=== PATIENT | female | born 2000 | race Caucasian/White ===

== ENCOUNTER 2018-06-04 07:50 | Inpatient (IN) | payer OTHER ==
[~2018-06-04] VITALS: Ht 165.1 cm; Wt 102.7 kg
[2018-06-04] MEDS ORDERED: MORPHINE SULFATE 4 MG/ML CPJ (NOT FOR IM USE) IV STA (08:02)
[2018-06-04] MEDS ORDERED: SODIUM CHLORIDE 0.9% 1,000 ML IV ONE (08:02)
[2018-06-04] MEDS ORDERED: ONDANSETRON HCL 4MG/2ML INJ IV STA (08:02)
[2018-06-04] MEDS ORDERED: NORT10CA PO (08:03)
[2018-06-04] MEDS ORDERED: PROP10TA10 PO (08:03)
[2018-06-04 08:30] LABS: BASOPHILS % 0.4 % (0.0-2.0); EOSINOPHILS % 3.2 % (0.0-5.0); HEMATOCRIT. 41.4 % (36.0-48.0); LYMPHOCYTES % 21.1 % (20.0-50.0); MEAN CORPUSCULAR HEMOGLOBIN 29.5 pg (28.0-32.0); MEAN CORPUSCULAR VOLUME 87.5 fL (81.0-99.0); MEAN PLATELET VOLUME 8.1 fl (7.4-10.4); MONOCYTES % 6.7 % (2.0-8.0); NEUTROPHILS % 68.6 % (40.0-76.0); PLATELET 284 x1000/uL (130-400); RED BLOOD CELL COUNT 4.73 mill/uL (4.2-5.4); RED CELL DISTRIBUTION WIDTH 13.9 % (11.6-14.6)
[2018-06-04 08:37] LABS: CHLORIDE 109 mEq/L (98-107)
[2018-06-04 08:50] LABS: HCG SCREEN NEGATIVE
[2018-06-04] MEDS ORDERED: ONDANSETRON HCL 4MG/2ML INJ IV ONE (09:45)
[2018-06-04] MEDS ORDERED: LORAZEPAM 2MG/ML CPJ IV ONE (09:45)
[2018-06-04 12:00] VITALS: BP 113/74
[2018-06-04] MEDS ORDERED: HYDROCODONE/ACETAMINOPHEN 5/325MG TABLET PO PRN (12:00)
[2018-06-04] MEDS ORDERED: GUAIFENESIN 200MG/10ML SUGAR FREE UDC PO PRN (12:00)
[2018-06-04] MEDS ORDERED: LORAZEPAM 2MG/ML CPJ IV PRN (12:00)
[2018-06-04] MEDS ORDERED: DOCUSATE SODIUM 100MG CAPSULE PO PRN (12:00)
[2018-06-04] MEDS ORDERED: ONDANSETRON HCL 4MG/2ML INJ IV PRN (12:00)
[2018-06-04] MEDS ORDERED: NA PHOS,M-B/NA PHOS,DI-BA ENEMA 118ML PR PRN (12:00)
[2018-06-04] MEDS ORDERED: CLONIDINE 0.1MG TABLET PO PRN (12:00)
[2018-06-04] MEDS ORDERED: MAGNESIUM/ALUMINUM HYDROXIDE/SIMETHICONE 30ML UDC PO PRN (12:00)
[2018-06-04] MEDS ORDERED: IPRATROPIUM/ALBUTEROL 0.5-3(2.5)MG/3ML NEB INH PRN (12:00)
[2018-06-04] MEDS ORDERED: MORPHINE SULFATE 4 MG/ML CPJ (NOT FOR IM USE) IV PRN (12:00)
[2018-06-04] MEDS ORDERED: DIPHENHYDRAMINE 50MG/ML VIAL IV PRN (12:00)
[2018-06-04 12:43] VITALS: BP 113/74
[2018-06-04] MEDS ORDERED: TOPI25TA48 MT (12:54)
[2018-06-04] MEDS ORDERED: NORT75CA MT (13:02)
[2018-06-04 16:00] VITALS: BP 104/63
[2018-06-04 16:13] LABS: CHLORIDE 111 mEq/L (98-107)
[2018-06-04] MEDS: SODIUM CHLORIDE 0.45% 1,000 ML IV SCH (16:17)
[2018-06-04 20:00] VITALS: BP 146/67
[2018-06-04] MEDS ORDERED: ENOXAPARIN 40MG/0.4ML SYR SUBCUT SCH (20:30)
[2018-06-04] MEDS: ACETAMINOPHEN 325MG TABLET PO PRN (21:01)
[2018-06-04] MEDS: ENOXAPARIN 30MG/0.3ML SYR SUBCUT SCH (21:02)
[2018-06-05] VITALS: BP 140/65
[2018-06-05 04:00] VITALS: BP 107/51
[2018-06-05 07:18] LABS: BASOPHILS % 0.6 % (0.0-2.0); EOSINOPHILS % 3.6 % (0.0-5.0); HEMATOCRIT. 36.9 % (36.0-48.0); HEMOGLOBIN. 12.5 g/dL (12.0-16.0); LYMPHOCYTES % 37.4 % (20.0-50.0); MEAN CORPUSCULAR HEMOGLOBIN 29.8 pg (28.0-32.0); MEAN CORPUSCULAR VOLUME 87.8 fL (81.0-99.0); MEAN PLATELET VOLUME 8.1 fl (7.4-10.4); MONOCYTES % 8.9 % (2.0-8.0); NEUTROPHILS % 49.5 % (40.0-76.0); PLATELET 229 x1000/uL (130-400); RED CELL DISTRIBUTION WIDTH 13.3 % (11.6-14.6)
[2018-06-05 07:36] LABS: CHLORIDE 111 mEq/L (98-107)
[2018-06-05 07:47] LABS: LDL CHOLESTEROL 108 mg/dL (5-100)
[2018-06-05 07:48] LABS: HDL CHOLESTEROL 29 mg/dL (40-59)
[2018-06-05 08:00] VITALS: BP 101/62
[2018-06-05] MEDS ORDERED: ASPIRIN 81MG EC TABLET PO SCH (09:00)
[2018-06-05] MEDS: SODIUM CHLORIDE 0.45% 1,000 ML IV SCH (09:25)
[2018-06-05] MEDS: ENOXAPARIN 30MG/0.3ML SYR SUBCUT SCH (09:27)
[2018-06-05] MEDS ORDERED: PROP80CA2 PO (10:22)
[2018-06-05] MEDS ORDERED: TOPI100T37 PO (10:22)
[2018-06-05] MEDS ORDERED: NORT50CA MT (10:22)
[2018-06-05 11:09] LABS: CLARITY URINE CLOUDY (CLEAR); COLOR URINE YELLOW (YELLOW); KETONES URINE TRACE (NEGATIVE); LEUKOCYTE ESTERASE URINE NEGATIVE (NEGATIVE); NITRITE URINE NEGATIVE (NEGATIVE); OCCULT BLOOD URINE NEGATIVE (NEGATIVE); PH URINE 5.5 (4.5-8.0); PROTEIN URINE NEGATIVE (NEGATIVE); SPECIFIC GRAVITY URINE 1.024 (1.005-1.030); UROBILINOGEN URINE 0.2 E.U./dL (0.2-1.0)
[2018-06-05 12:00] VITALS: BP 112/65
[2018-06-05 12:05] LABS: *AMPHETAMINES SCREEN URINE NEGATIVE (NEGATIVE); *BARBITURATES SCREEN URINE NEGATIVE (NEGATIVE)
[2018-06-05 12:06] LABS: *BENZODIAZEPINES SCREEN URINE NEGATIVE (NEGATIVE); *COCAINE SCREEN URINE NEGATIVE (NEGATIVE)
[2018-06-05 12:09] LABS: PHENCYCLIDINE URINE SCREEN NEGATIVE (NEGATIVE)
[2018-06-05 12:13] LABS: METHADONE URINE SCREEN NEGATIVE (NEGATIVE)
[2018-06-05 12:28] LABS: CANNABINOID URINE SCREEN PRESUMTIVE POSITIVE (NEGATIVE); OPIATES URINE SCREEN PRESUMTIVE POSITIVE (NEGATIVE)
[2018-06-05] MEDS: ACETAMINOPHEN 325MG TABLET PO PRN (13:14)
[2018-06-05 16:00] VITALS: BP 126/86
[2018-06-05 16:48] LABS: CREATINE KINASE MB FRACTION 1.2 ng/mL (0.5-3.6)
== END 2018-06-05 18:00 | disposition left against medical advice (07) | DRG 640 ==
LOC: ER 07:58 → 5WST 10:33 → EDBEDREQTM 10:35 → EDBEDREQ 10:35 → ENRESERV 11:09
PROVIDERS: ADMIT Internal Medicine; ATTEND Internal Medicine
DX: E86.0 Dehydration (principal); G93.40 Encephalopathy, unspecified; G81.94 Hemiplegia, unspecified affecting left nondominant side; G43.109 Migraine with aura, not intractable, without status migrainosus; Z53.21 Procedure and treatment not carried out due to patient leaving prior to being seen by health care provider; Z79.899 Other long term (current) drug therapy
CPT/HCPCS: 36415; 70450; 70551; 71045; 80048; 80053; 80061; 80305; 81003; 82550; 82553; 82962; 83036; 83880; 84439; 84443; 84484; 84703; 85025; 85379; 93005; 93306; 96361; 96374; 96375; 96376; 99291; J1650; J2060; J2270; J2405; J7030